=== PATIENT | female | born 1980 | race American Indian/Alaskan Native ===

== ENCOUNTER 2017-09-30 03:11 | Emergency (ER) | payer MEDICAID ==
[2017-09-30 04:05] VITALS: BP 117/84
[2017-09-30] MEDS ORDERED: TYLENOL PO ONE (08:37)
[2017-09-30] MEDS ORDERED: NORCO 7.5/325 PO ONE (08:37)
--- NOTE | 2017-09-30 08:47 | Emergency Department Report ---
ED Back Pain/Injury HPI - General Chief Complaint: Back Pain/Injury Stated Complaint: BACK PAIN Time Seen by Provider: 09/30/17 08:01 Source: patient Limitations: No Limitations - History of Present Illness Initial Comments: This is a 37-year-old female nontoxic, well nourished in appearance, no acute signs of distress presents to the ED with c/o of acute on chronic low back pain. Patient stated 2 days ago she was laying on the couch and got up suddenly and developed sharp pain towards her lower back. Patient states radiation is towards right lower extremity. Patient denies any trauma. Patient stated she was seen in [place] with a pain specialist for her herniated disc in the lumbar spine. Patient states that she needed surgery but just moved to [place] and is looking for a primary care doctor. Patient denies any abdominal pain, fever, chills, nausea, vomiting, chest pain or shortness of breath. Patient denies any bladder or bowel instability. He denies any urinary symptoms. Patient states allergies to ibuprofen with past medical history of lumbar slipped disc. MD Complaint: back pain -: days(s) (2) Similar Symptoms Previously: Yes Place: home Radiation: right leg Severity: mild Severity scale (0 -10): 8 Quality: aching Consistency: constant Improves With: immobilization, supine, sitting upright Worsens With: movement, walking Associated Symptoms: denies other symptoms. denies: confusion, weakness, chest pain, numbness, difficulty walking, cough, difficulty urinating, diaphoresis, incontinence, fever/chills, constipation, headaches, abdominal pain, loss of appetite, malaise, nausea/vomiting, rash, seizure, shortness of breath, syncope - Related Data Previous Rx's Medication Instructions Recorded Last Taken Type Acetaminophen [8Hr Arthritis Pain] 650 mg PO Q8H PRN #30 tablet.er 09/30/17 Unknown Rx Cyclobenzaprine [Flexeril] 10 mg PO BID PRN #10 tablet 09/30/17 Unknown Rx Allergies Allergy/AdvReac Type Severity Reaction Status Date / Time ibuprofen Allergy Rash Verified 09/30/17 04:06 ED Review of Systems ROS: Stated complaint: BACK PAIN Other details as noted in HPI Constitutional: denies: chills, fever Eyes: denies: eye pain, eye discharge, vision change ENT: denies: ear pain, throat pain Respiratory: denies: cough, shortness of breath, wheezing Cardiovascular: denies: chest pain, palpitations Endocrine: no symptoms reported Gastrointestinal: denies: abdominal pain, nausea, diarrhea Genitourinary: denies: urgency, dysuria, discharge Musculoskeletal: back pain. denies: joint swelling, arthralgia Skin: denies: rash, lesions Neurological: denies: headache, weakness, paresthesias Psychiatric: denies: anxiety, depression Hematological/Lymphatic: denies: easy bleeding, easy bruising ED Past Medical Hx - Past Medical History Previous Medical History?: Yes Additional medical history: Slipped disc. - Surgical History Past Surgical History?: Yes Additional Surgical History: Hysterectomy, hernia surgery x2 - Social History Smoking Status: Never Smoker Substance Use Type: None - Medications Home Medications: Home Medications Medication Instructions Recorded Confirmed Last Taken Type Acetaminophen [8Hr Arthritis Pain] 650 mg PO Q8H PRN #30 tablet.er 09/30/17 Unknown Rx Cyclobenzaprine [Flexeril] 10 mg PO BID PRN #10 tablet 09/30/17 Unknown Rx ED Physical Exam - General Limitations: No Limitations General appearance: alert, in no apparent distress - Head Head exam: Present: atraumatic, normocephalic - Eye Eye exam: Present: normal appearance Pupils: Present: normal accommodation - ENT ENT exam: Present: normal exam, mucous membranes moist - Neck Neck exam: Present: normal inspection, full ROM. Absent: tenderness, meningismus, lymphadenopathy, thyromegaly - Respiratory Respiratory exam: Present: normal lung sounds bilaterally. Absent: respiratory distress, wheezes, rales, rhonchi, stridor, chest wall tenderness, accessory muscle use, decreased breath sounds, prolonged expiratory - Cardiovascular Cardiovascular Exam: Present: regular rate, normal rhythm, normal heart sounds. Absent: bradycardia, tachycardia, irregular rhythm, systolic murmur, diastolic murmur, rubs, gallop - GI/Abdominal GI/Abdominal exam: Present: soft, normal bowel sounds. Absent: distended, tenderness, guarding, rebound, rigid, diminished bowel sounds - Rectal Rectal exam: Present: deferred - Extremities Exam Extremities exam: Present: normal inspection, full ROM, normal capillary refill - Back Exam Back exam: Present: normal inspection, full ROM, paraspinal tenderness (lumbar region). Absent: tenderness, CVA tenderness (R), CVA tenderness (L), muscle spasm, vertebral tenderness, rash noted - Expanded Back Exam Expanded Back exam: Absent: saddle anesthesia Back exam: Negative Straight Leg Raising: Left, Right - Neurological Exam Neurological exam: Present: alert, oriented X3, normal gait - Psychiatric Psychiatric exam: Present: normal affect, normal mood - Skin Skin exam: Present: warm, dry, intact, normal color. Absent: rash ED Course Vital Signs 09/30/17 04:00 Temperature 98.4 F Pulse Rate 74 Respiratory 16 Rate Blood Pressure 117/84 [Left] O2 Sat by Pulse 100 Oximetry - Reevaluation(s) Reevaluation #1: 09/30/17 08:58 Patient is speaking in full sentences with no signs of distress noted. ED Medical Decision Making - Medical Decision Making This is a 37-year-old female that presents with low back strain. Patient is stable and was examined by me. There is no bladder or bowel stability and no signs or symptoms of cauda equina syndrome. There is no spinal tenderness. Patient did receive acetaminophen and [place] in the ED which patient states symptoms are improving and subsided. Patient's cousin states she will drive the patient home after discharge due to drowsiness. Patient is discharged with Tylenol and Flexeril. Patient was instructed not to operate any machinery while taking Flexeril due to drowsiness. Patient was referred and instructed to Follow-up with a primary care doctor in 3-5 days or if symptoms worsen and continue return to emergency room as soon as possible. At time of discharge, the patient does not seem toxic or ill in appearance. No acute signs of distress noted. Patient agrees to discharge treatment plan of care. No further questions noted by the patient. Critical care attestation.: If time is entered above; I have spent that time in minutes in the direct care of this critically ill patient, excluding procedure time. ED Disposition Clinical Impression: Low back strain Qualifiers: Encounter type: initial encounter Qualified Code(s): S39.012A - Strain of muscle, fascia and tendon of lower back, initial encounter Chronic back pain Qualifiers: Back pain location: low back pain Back pain laterality: right Sciatica presence : with sciatica Sciatica laterality: sciatica of right side Qualified Code(s): M54.41 - Lumbago with sciatica, right side; G89.29 - Other chronic pain Disposition: DC-01 TO HOME OR SELFCARE Is pt being admited?: No Does the pt Need Aspirin: No Condition: Stable Instructions: Low Back Strain (ED), Chronic Back Pain (ED), Cyclobenzaprine ( By mouth), Acetaminophen (By mouth) Additional Instructions: Follow-up with your primary care doctor in 3-5 days or if symptoms worsen such as bladder or bowel stability, chest pain, short of breath, numbness or tingling sensation in extremities, headache, dizziness, visual changes, nausea vomiting, or abdominal pain, return back to emergency room as was possible. Take ibuprofen and Flexeril as prescribed. Do not operate heavy machinery while taking Flexeril due to sedation Prescriptions: Acetaminophen [8Hr Arthritis Pain] 650 mg PO Q8H PRN #30 tablet.er PRN Reason: Pain Cyclobenzaprine [Flexeril] 10 mg PO BID PRN #10 tablet PRN Reason: Muscle Spasm Referrals: BARB RAYA MD [Primary Care Provider] - 3-5 Days SHAKIRA RUIZ MD [Staff Physician] - 3-5 Days PRIMARY CAREMD [Referring] - 3-5 Days [facility] [Outside] - 3-5 Days [facility] [Outside] - 3-5 Days Forms: Work/School Release Form(ED)
== END 2017-09-30 09:30 | disposition home or self-care (01) ==
LOC: ED 03:11
DX: S39.012A Strain of muscle, fascia and tendon of lower back, initial encounter (principal); Z88.6 Allergy status to analgesic agent; X58.XXXA Exposure to other specified factors, initial encounter; Y93.89 Activity, other specified; Y92.89 Other specified places as the place of occurrence of the external cause; Y99.8 Other external cause status
CPT/HCPCS: 99282